=== PATIENT | male | born 1965 | race Caucasian/White ===

== ENCOUNTER → 2020-02-06 | Outpatient (CLI) | payer OTHER | LOC: M.LAB 09:40 | PROVIDERS: ATTEND Surgery | DX: Z01.812 Encounter for preprocedural laboratory examination (principal); K82.8 Other specified diseases of gallbladder ==

== ENCOUNTER 2021-05-24 21:38 | Emergency (ER) | payer OTHER ==
[~2021-05-24] VITALS: Ht 188 cm; Wt 98.9 kg
[2021-05-24] MEDS ORDERED: GLIMEPIRIDE1 MG PO (21:53)
[2021-05-24] MEDS ORDERED: ZOLOFT100 MG PO (21:53)
[2021-05-24] MEDS ORDERED: METFORMIN HCL500 M3 PO (21:53)
[2021-05-24 23:26] VITALS: BP 143/64
== END 2021-05-24 23:27 | disposition home or self-care (01) ==
LOC: M.ERS 21:38
DX: T16.1XXA Foreign body in right ear, initial encounter (principal); E11.9 Type 2 diabetes mellitus without complications; Z79.899 Other long term (current) drug therapy; X58.XXXA Exposure to other specified factors, initial encounter; Y93.89 Activity, other specified; Y92.89 Other specified places as the place of occurrence of the external cause; Y99.8 Other external cause status